=== PATIENT | female | born 1950 | race Hispanic/Latino ===

== ENCOUNTER 2017-01-13 14:39 | Emergency (ER) | payer MEDICARE ==
[2017-01-13 14:47] VITALS: BP 166/94; PULSE 70; RESP 18; TEMP 97.9; O2SAT 99
--- NOTE | 2017-01-13 15:37 | ED PDOC ---
Lower Extremity Pain/Injury Time Seen by Provider: 01/13/17 15:12 Chief Complaint (Nursing): Lower Extremity Problem/Injury Chief Complaint (Provider): Lower Extremity Problem/Injury History Per: Patient History/Exam Limitations: no limitations Onset/Duration Of Symptoms: Days (x2) Current Symptoms Are (Timing): Still Present Additional Complaint(s): Deborah Sorto is a 66 year old female who presents to the emergency department for an evaluation of worsening right big toe swelling associated with bruising status post accidentally dropping cooking pot on foot without shoes on yesterday. Denied any pain at this time. Patient stated she took Advil for pain relief and able to ambulate. PMD: none provided - Ankle/Foot Description Of Injury: Struck With Object (cooking pot) Past Medical History Reviewed: Historical Data, Nursing Documentation, Vital Signs Vital Signs: Last Vital Signs Temp 97.9 F 01/13/17 14:45 Pulse 70 01/13/17 14:45 Resp 18 01/13/17 14:45 BP 166/94 H 01/13/17 14:45 Pulse Ox 99 01/13/17 14:45 - Medical History PMH: No Chronic Diseases - Family History Family History: States: Unknown Family Hx - Home Medications Home Medications: Ambulatory Orders Medication Instructions Recorded traMADol [Ultram] 50 mg PO Q4 #10 tab 01/13/17 - Allergies Allergies/Adverse Reactions: Allergies Allergy/AdvReac Type Severity Reaction Status Date / Time azithromycin [From Zithromax] Allergy SWELLING Verified 01/13/17 14:45 Review of Systems ROS Statement: Except As Marked, All Systems Reviewed And Found Negative Musculoskeletal: Positive for: Foot Pain (right big toe with swelling and bruising) Physical Exam - Reviewed Nursing Documentation Reviewed: Yes Vital Signs Reviewed: Yes - Physical Exam Appears: Positive for: Well, Non-toxic, No Acute Distress Head Exam: Positive for: ATRAUMATIC, NORMAL INSPECTION, NORMOCEPHALIC Cardiovascular/Chest: Positive for: Regular Rate, Rhythm, Chest Non Tender Respiratory: Positive for: Normal Breath Sounds. Negative for: Decreased Breath Sounds, Respiratory Distress Extremity: Positive for: Normal ROM, Other (moderate echhymosis to right great toe; intact vesicles over joint; appears hematoma). Negative for: Tenderness, Pedal Edema, Deformity Neurologic/Psych: Positive for: Alert (x3), Oriented - ECG O2 Sat by Pulse Oximetry: 99 (RA) Pulse Ox Interpretation: Normal Medical Decision Making Medical Decision Making: Initial Impression: Right foot injury Initial Plan: * Xray foot (right) ____ Time: 1535 --Xray foot (right) FINDINGS: BONES: No acute fracture. No osseous erosion or periosteal reaction. There is only mild hallux valgus. JOINTS: No articular erosion or joint space narrowing. SOFT TISSUES: Mild soft tissue swelling over medial aspect 1st metatarsal head OTHER FINDINGS: None. IMPRESSION: Soft tissue swelling over medial aspect 1st metatarsal head. Podiatry consult obtained, see notes. Scribe Attestation: Documented by Katie Asif, acting as a scribe for Antonia Resendiz Provider Scribe Attestation: All medical record entries made by the Scribe were at my direction and personally dictated by me. I have reviewed the chart and agree that the record accurately reflects my personal performance of the history, physical exam, medical decision making, and the department course for this patient. I have also personally directed, reviewed, and agree with the discharge instructions and disposition. Disposition - Clinical Impression Clinical Impression: Toe fracture - Patient ED Disposition Is Patient to be Admitted: No - Disposition Referrals: Podiatry Clinic [Outside] Disposition: Routine/Home Disposition Time: 16:34 Condition: STABLE Prescriptions: traMADol [Ultram] 50 mg PO Q4 #10 tab Instructions: Toe Fracture (ED) Forms: [employer] Connect (Macedonian)
--- NOTE | 2017-01-13 15:54 | RAD ---
PROCEDURE: Radiographs of the right great toe. TECHNIQUE:: AP radiograph of the right foot, with oblique and lateral view of the right great toe. COMPARISON: None. FINDINGS: BONES: No acute fracture. No osseous erosion or periosteal reaction. There is only mild hallux valgus. JOINTS: No articular erosion or joint space narrowing. SOFT TISSUES: Mild soft tissue swelling over medial aspect 1st metatarsal head OTHER FINDINGS: None. IMPRESSION: Soft tissue swelling over medial aspect 1st metatarsal head.
--- NOTE | 2017-01-13 16:29 | CP.PCM.CON ---
History of Present Illness - History of Present Illness History of Present Illness: 66 y/o female with no PMHx seen in the ED for right foot big toe pain with swelling and blistering noted. Pt states she dropped a pot on the toe last night. Pt denies attempting any treatment and says she continue to walk around. Pt says it has been difficult to walk today or push off the big toe. Pt admits to a little bit of tingling and numbness in the big toe, but denies any burning sensation. Pt admits to taking Advil early today with mild relief of pain. Pt denies F/C/N/V/CP/SOB. PSH: denies Social: social EtOH; denies cigarette or illicit drug use All: azithromycin Review of Systems - Review of Systems All systems: reviewed and no additional remarkable complaints except (per HPI) Past Patient History - Past Social History Smoking Status: Former Smoker - CARDIAC Hx Hypertension: Yes - PSYCHIATRIC Hx Substance Use: No Meds Home Medications: Home Medication List Medication Instructions Recorded Confirmed Type traMADol [Ultram] 50 mg PO Q4 #10 tab 01/13/17 Rx Allergies/Adverse Reactions: Allergies Allergy/AdvReac Type Severity Reaction Status Date / Time azithromycin [From Zithromax] Allergy SWELLING Verified 01/13/17 14:45 Physical Exam - Constitutional Appears: Well, Non-toxic, No Acute Distress - Extremities Exam Additional comments: Right lower extremity focused exam: Vasc: DP/PT pulses palpable 2/4. Temperature gradient warm to warm. +2 non pitting edema noted to dorsum of foot and surrounding right hallux. CFT < 3sec to all digits Derm: Ecchymosis noted to entire right hallux with 1.0 cm x 0.5cm fluid blister noted to dorsum of hallucal IPJ. No open lesions or maceration, no breaks in skin or soft tissue, no erythema Neuro: Protective sensation grossly intact Ortho: Tenderness elicited upon passive dorsiflexion and plantarflexion. Hallux ROM limited due to guarding. Pt unable to wiggle hallux at this time due to guarding - Neurological Exam Neurological exam: Alert, Oriented x3 - Psychiatric Exam Psychiatric exam: Normal Affect, Normal Mood Results - Vital Signs Recent Vital Signs: Last Vital Signs Temp 97.9 F 01/13/17 14:45 Pulse 70 01/13/17 14:45 Resp 18 01/13/17 14:45 BP 166/94 H 01/13/17 14:45 Pulse Ox 99 01/13/17 16:13 Assessment & Plan - Assessment and Plan (Free Text) Assessment: 66 y/o female with nondisplaced incomplete oblique partial fracture of right hallux proximal phalanx Plan: Pt seen and evaluated in ED Discussed pt in detail with attending Dr. Johns X-rays of R foot reviewed by me, reveal incomplete partial oblique fracture of right hallucal proximal phalanx shaft, nondisplaced Fluid blister lanced with sterile #25 gauge needle and blister dressed with bacitracin and bandaid Pt tolerated procedure without incident Pt placed in modified [place] compression dressing and dispensed surgical shoe and crutches Pt advised to keep dressing clean, dry and intact until seen at next appointment Pt advised to utilize surgical shoe at all times when bearing weight Per patient's request, pt to follow up at [facility] Thank you for this consult
== END 2017-01-13 16:19 | disposition home or self-care (01) ==
LOC: H.ER 14:39
DX: S92.401A Displaced unspecified fracture of right great toe, initial encounter for closed fracture (principal); W20.8XXA Other cause of strike by thrown, projected or falling object, initial encounter; Z87.891 Personal history of nicotine dependence; I10 Essential (primary) hypertension

== ENCOUNTER 2017-01-20 16:13 | Emergency (ER) | payer MEDICARE, OTHER ==
[2017-01-20 16:23] VITALS: RESP 16; TEMP 97.9; O2SAT 98
--- NOTE | 2017-01-20 16:52 | ED PDOC ---
HPI: General Adult Time Seen by Provider: 01/20/17 16:34 Chief Complaint (Nursing): High Blood Pressure Chief Complaint (Provider): they said my pressure is high History Per: Patient History/Exam Limitations: no limitations Onset/Duration Of Symptoms: Unknown Current Symptoms Are (Timing): Still Present Recently: Treated By A Physician Additional Complaint(s): 66yo female sent to ED from podiatry clinic for elevated BP. She denies symptoms - no headache, chest pain, back pain, dizziness, SOB, nausea or change in vision. Said has been told in past her BP has been high but hasnt followed with PMD as going through a divorce and admittedly hasnt been taking care of self. She sees podiatry for a L hallux fracture sustained from a falling pot. Past Medical History Reviewed: Historical Data, Nursing Documentation, Vital Signs Vital Signs: Last Vital Signs Temp 97.9 F 01/20/17 16:17 Pulse 66 01/20/17 16:17 Resp 16 01/20/17 16:17 BP 151/106 H 01/20/17 16:17 Pulse Ox 98 01/20/17 16:54 - Medical History PMH: HTN - Family History Family History: States: Unknown Family Hx - Home Medications Home Medications: Ambulatory Orders Medication Instructions Recorded traMADol [Ultram] 50 mg PO Q4 #10 tab 01/13/17 hydroCHLOROthiazide [Microzide] 12.5 mg PO DAILY #10 cap 01/20/17 - Allergies Allergies/Adverse Reactions: Allergies Allergy/AdvReac Type Severity Reaction Status Date / Time amoxicillin Allergy RASH Verified 01/20/17 16:23 azithromycin [From Zithromax] Allergy SWELLING Verified 01/13/17 14:45 Review of Systems ROS Statement: Except As Marked, All Systems Reviewed And Found Negative Constitutional: Negative for: Fever, Chills Cardiovascular: Negative for: Chest Pain, Palpitations Gastrointestinal: Negative for: Nausea, Vomiting, Abdominal Pain Genitourinary Female: Negative for: Dysuria Musculoskeletal: Negative for: Neck Pain, Shoulder Pain Skin: Negative for: Rash, Lesions, Jaundice Neurological: Negative for: Weakness, Numbness Psych: Negative for: Anxiety Physical Exam - Reviewed Nursing Documentation Reviewed: Yes Vital Signs Reviewed: Yes - Physical Exam Appears: Positive for: Well, Non-toxic, No Acute Distress Head Exam: Positive for: ATRAUMATIC, NORMAL INSPECTION, NORMOCEPHALIC Skin: Positive for: Normal Color, Warm, DRY Eye Exam: Positive for: EOMI, Normal appearance, PERRL ENT: Positive for: Normal ENT Inspection Neck: Positive for: Normal, Painless ROM Cardiovascular/Chest: Positive for: Regular Rate, Rhythm Respiratory: Positive for: CNT, Normal Breath Sounds Gastrointestinal/Abdominal: Positive for: Bowel Sounds, Soft. Negative for: Tenderness, Guarding Back: Positive for: Normal Inspection Extremity: Positive for: Normal ROM Neurologic/Psych: Positive for: Alert, Oriented. Negative for: Motor/Sensory Deficits - Laboratory Results Result Diagrams: 01/20/17 17:10 01/20/17 17:10 - ECG ECG: Positive for: Interpreted By Me ECG Rhythm: Positive for: Nonspecific Changes (QTc 485) Rate: 63 O2 Sat by Pulse Oximetry: 98 Pulse Ox Interpretation: Normal Medical Decision Making Medical Decision Making: Pt w elevated blood pressure but asymptomatic. Will check basic chem and initiate low dose antihypertensive but explained needs primary care to manage and not supervisor long goods solution. Explained EKG findings to patient. She is asymptomatic and wants to go home, agrees to followup w PMD, referred alteration hand Dr Noel and cardio Dr Freed Disposition - Clinical Impression Clinical Impression: Elevated blood pressure reading - Patient ED Disposition Is Patient to be Admitted: No Counseled Patient/Family Regarding: Studies Performed, Diagnosis, Need For Followup, Rx Given - Disposition Referrals: Amadeo Noel MD [Staff Provider] - Disposition: Routine/Home Disposition Time: 18:22 Condition: STABLE Additional Instructions: Return to ER for any worse or new symptoms. Start blood pressure medication as directed. See primary doctor for further testing and blood pressure management. Prescriptions: hydroCHLOROthiazide [Microzide] 12.5 mg PO DAILY #10 cap Instructions: Hypotension (ED), Hypertension (ED) Forms: [employer] Connect (Lao)
[2017-01-20 17:22] LABS: BASO % 0.5 % (0.0-2.0); EOS # 0.1 K/uL (0.0-0.7); EOS % 2.1 % (0.0-4.0); HEMATOCRIT 40.5 % (34.0-47.0); LYMPH # 2.4 K/uL (1.0-4.3); LYMPH % 35.2 % (20.0-40.0); MEAN CORPUSCULAR HEMOGLOBIN 30.7 pg (27.0-31.0); MEAN CORPUSCULAR HGB CONC 33.4 g/dL (33.0-37.0); MEAN PLATELET VOLUME 8.9 fl (7.2-11.7); MONO # 0.4 K/uL (0.0-0.8); MONO % 6.1 % (0.0-10.0); NEUT # 3.8 K/uL (1.8-7.0); NEUT % 56.1 % (50.0-75.0); RED CELL DISTRIBUTION WIDTH 13.7 % (11.5-14.5); WHITE BLOOD COUNT 6.7 K/uL (4.8-10.8)
[2017-01-20 17:31] LABS: BLOOD UREA NITROGEN 25 mg/dl (7-17); CALCIUM 9.3 mg/dL (8.4-10.2); CARBON DIOXIDE 30 mmol/L (22-30); CHLORIDE 107 mmol/L (98-107); GFR AFRICAN-AMERICAN > 60; GLUCOSE,RANDOM 85 mg/dL (65-105); POTASSIUM 4.5 MMOL/L (3.6-5.0); SODIUM 144 mmol/l (132-148)
[2017-01-20 18:22] VITALS: PULSE 63
[2017-01-20 18:23] VITALS: BP 189/89
--- NOTE | 2017-01-21 10:40 | CARD ---
APPROVED REPORT EKG Measurement Heart [id number] <Conclusion> Normal sinus rhythm Left ventricular hypertrophy with repolarization abnormality Abnormal ECG
== END 2017-01-20 18:48 | disposition home or self-care (01) ==
LOC: H.ER 16:13
DX: I10 Essential (primary) hypertension (principal)